=== PATIENT | male | born 1995 | race Two or more races ===

== ENCOUNTER 2025-05-30 12:56 | Emergency (ER) | payer MEDICAID ==
[~2025-05-30] VITALS: Ht 152.4 cm; Wt 85.7 kg
[2025-05-30 13:06] VITALS: TEMP 98.1
[2025-05-30] MEDS ORDERED: MORPHINE SULFATE INJ 4 MG/ML DISP.SYRIN ONE ×2 (13:16→14:50)
[2025-05-30] MEDS ORDERED: MORPHINE SULFATE INJ 2 MG/ML DISP.SYRIN ONE (13:16)
[2025-05-30] MEDS ORDERED: ONDANSETRON HCL/PF 4 MG/2 ML VIAL ONE ×2 (13:16→14:50)
[2025-05-30] MEDS: ONDANSETRON HCL/PF 4 MG/2 ML VIAL IVP ONE (13:18)
[2025-05-30] MEDS: MORPHINE SULFATE INJ 2 MG/ML DISP.SYRIN IV ONE ×2 (13:22→14:56)
[2025-05-30] MEDS ORDERED: HYDR-3980 PO (14:51)
[2025-05-30] MEDS ORDERED: ONDA4TAB11 PO (14:51)
[2025-05-30] MEDS ORDERED: ACET-73 PO (14:51)
[2025-05-30] MEDS ORDERED: IBUP-1957 PO (14:51)
[2025-05-30] MEDS: ONDANSETRON HCL/PF - ER 4 MG/2 ML VIAL IV ONE (14:52)
[2025-05-30 15:31] VITALS: BP 127/66; O2SAT 95
== END 2025-05-30 15:32 | disposition home or self-care (01) ==
LOC: ER 12:56
DX: S42.491A Other displaced fracture of lower end of right humerus, initial encounter for closed fracture (principal); X50.1XXA Overexertion from prolonged static or awkward postures, initial encounter; Y93.64 Activity, baseball; Y92.89 Other specified places as the place of occurrence of the external cause; Y99.8 Other external cause status
CPT/HCPCS: 29105; 73020; 73060; 73070; 96374; 96375; 96376; 99284; J2270; J2405